=== PATIENT | female | born 1980 | race Caucasian/White ===

== ENCOUNTER 2022-07-28 08:41 | Emergency (ER) | payer OTHER ==
--- OUTSIDE RECORDS SUMMARY | 2022-07-28 08:45 | XMS REPORT | Continuity of Care Document ---
:1980 Author Organization [facility] t Address [address] [place] [address] Care Team Providers Name Role Phone Laz Pratt MD Primary Care Physician OVI TORRES Attending Clinician Unavailable HANK TORRES Attending Clinician Unavailable Michaelle Mccarthy APRN Attending Clinician Allie Steel RN Attending Clinician Unavailable HANK TORRES Attending Clinician Unavailable Aubrey OLGUIN, Provider Not In Attending Clinician Unavailable Lorene Campos MA Attending Clinician Unavailable Chen Rosenbaum RD Attending Clinician Unavailable HANK TORRES M.D. Attending Clinician Unavailable HANK TORRES Admitting Clinician Unavailable Hank Torres MD Admitting Clinician Payers Payer Name Policy Type Policy Number Effective Date Expiration Date [place]idi [place] [employer] CHOICE POS [id number] 2018 00:00:00 II Problems Condition Condition Condition Status Onset Resolution Last Treating Co mments Source Name Details Category Date Date Treatment Clinician Date Encounter Encounter Disease Active 2021-08 [facility] for for 2-07 Health screening screening 00:00: for for 00 osteoporos osteoporos is is Morbid Morbid Disease Active UT obesity obesity 804 Health due to due to 00:00: excess excess 00 calories calories Screening Screening Disease Active UT for viral for viral 4-01 Heal th disease disease 00:00: 00 Malabsorpt Malabsorpt Disease Active U T ion due to ion due to 3-31 He alth intoleranc intoleranc 00:00: e, not e, not 00 elsewhere elsewhere classified classified Malnutriti Malnutriti Disease Active U T on on 11-15 Health 00:00: 00 Vitamin D Vitamin D Disease Active UT deficiency deficiency 11-15 He alth 00:00: 00 Screening Screening Problem Active UT for viral for viral Phys ici disease disease ans Malabsorpt Malabsorpt Problem Active U T ion due to ion due to Ph ysici intoleranc intoleranc an s e, not e, not elsewhere elsewhere classified classified Malnutriti Malnutriti Problem Active U T on on Physici ans Vitamin D Vitamin D Problem Active UT deficiency deficiency Ph ysici ans Allergies, Adverse Reactions, Alerts This patient has no known allergies or adverse reactions. Social History Social Habit Start Date Stop Date Quantity Comments Source History [facility] Alcohol Frequency History [facility] Alcohol Std Drinks History [facility] Alcohol Binge Exposure to 2022-07-13 2022-07-[address] [facility] SARS-CoV-2 (event) 00:00:00 06:46:00 Tobacco use and 2021-03-21 2021-03-[address] [facility] exposure 00:00:00 00:00:00 non-user Alcohol intake 2021-03-21 2021-03-[address] [facility] 00:00:00 00:00:00 alcohol (finding) Alcohol Comment 2021-03-21 2021-03-21 Occasionally [place] [facility] 00:00:00 00:00:00 Sex Assigned At [address] [facility] 00:00:00 00:00:00 Smoking Status Start Date Stop Date Source Tobacco smoking consumption unknown [facility] Never smoked tobacco [facility] Medications Ordered Filled Start Stop Current Ordering Indication Dosage Frequency Signature Comments Components Source Medication Medication Date Date Medication? Clinician (SIG) Name Name Multiple 2021-08 Yes Take by IN Vitamin 2-07 mouth. [facility] (MULTIVITAM 08:19: INS PO) 49 CALCIUM PO 2021-08 Yes Take by IN 2-07 mouth. [facility] 08:19: 49 Multiple Yes Take by IN Vitamin 4-12 mouth. [facility] (MULTIVITAM 09:05: INS PO) 41 CALCIUM PO 2022-0 Yes Take by UT 4-12 mouth. O[facility] 09:05: 41 No known 0 No No known UT medications 1-04 medication He alth 09:08: s 55 No known 2020-0 No No known UT medications 05-16 medication He alth 13:27: s 36 No known 2020-0 No No known UT medications 05-16 medication He alth 13:27: s 36 No known 2020-0 No No known UT medications 05-16 medication He alth 13:27: s 36 No known 2020-0 No No known UT medications 05-16 medication He alth 13:27: s 36 celecoxib 2020- No [id number] 100mg Q.5D Take 1 UT (CeleBREX) 05-10 capsule Healt h 100 MG 00:00: 04:59 (100 mg capsule 00 :00 total) by mouth 2 (two) times a day for 3 days. celecoxib 2020- No [id number] 100mg Q.5D Take 1 UT (CeleBREX) 05-10 capsule Healt h 100 MG 00:00: 04:59 (100 mg capsule 00 :00 total) by mouth 2 (two) times a day for 3 days. pantoprazol Yes 40mg QD Take 40 mg UT e 05-09 by mouth 1 Health (ProtoNix) 00:00: (one) time 40 MG EC 00 each day. tablet pantoprazol Yes 40mg QD Take 40 mg UT e 9 by mouth 1 Health (ProtoNix) 00:00: (one) time 40 MG EC 00 each day. tablet pantoprazol 2020- No 40mg QD Take 40 mg UT e 05-09 11-03 by mouth 1 Health (ProtoNix) 00:00: 00:00 (one) time 40 MG EC 00 :00 each day. tablet amoxicillin Yes TAKE 1 UT -clavulanat 9-13 TABLET BY Hea lth e 00:00: MOUTH (Augmentin) 00 EVERY 12 875-125 MG HOURS FOR tablet 10 DAYS guaiFENesin Yes TAKE 10 ML UT -codeine 9-13 BY MOUTH Health (Robitussin 00:00: EVERY 6 -AC) 100-10 00 HOURS MG/5ML syrup amoxicillin 2021-0 Yes TAKE 1 UT -clavulanat 9-13 TABLET BY Hea lth e 00:00: MOUTH (Augmentin) 00 EVERY 12 875-125 MG HOURS FOR tablet 10 DAYS guaiFENesin Yes TAKE 10 ML UT -codeine 9-13 BY MOUTH Health (Robitussin 00:00: EVERY 6 -AC) 100-10 00 HOURS MG/5ML syrup amoxicillin 2020- No TAKE 1 UT -clavulanat 9-13 11-03 TABLET BY He alth e 00:00: 00:00 MOUTH (Augmentin) 00 :00 EVERY 12 875-125 MG HOURS FOR tablet 10 DAYS guaiFENesin 2020- No TAKE 10 ML UT -codeine 9-13 11-03 BY MOUTH Health (Robitussin 00:00: 00:00 EVERY 6 -AC) 100-10 00 :00 HOURS MG/5ML syrup No known 0 No No known UT medications 8-04 medication He alth 10:03: s 39 No known No No known UT medications 8-04 medication He alth 10:03: s 39 Vitamin D Vitamin D Yes MICHAELLE Take 1 UT (Ergocalcif (Ergocalcif 4-09 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 oziel) 1.25 oziel) 1.25 00:00: two times ans MG (21459 MG (69575 00 per week UT) Oral UT) Oral Capsule Capsule No known No UT medications Health No known No UT medications Health Vital Signs Vital Name Observation Time Observation Value Comments Source Systolic blood 2022-07-24 14:18:00 118 mm[Hg] [facility] pressure Diastolic blood 2022-07-24 14:18:00 74 mm[Hg] [facility] pressure Heart rate 2022-07-24 14:18:00 69 /min [facility] Body height 2022-07-24 14:18:00 162.6 cm [facility] Body weight 2022-07-24 14:18:00 87.181 kg [facility] BMI 2022-07-24 14:18:00 32.99 [facility] 2021-11-27 14:02:00 97 mm[Hg] [facility] pressure Diastolic blood 2021-11-27 14:02:00 64 mm[Hg] [facility] pressure Heart rate 2021-11-27 14:02:00 68 /min [facility] Body temperature 2021-11-27 14:02:00 36.67 Shnaa [facility] Body height 2021-11-27 14:02:00 162.6 cm [facility] Body weight 2021-11-27 14:02:00 97.16 kg [facility] BMI 2021-11-27 14:02:00 36.77 kg/m2 [facility] Systolic blood 2021-08-21 15:08:00 120 mm[Hg] [facility] pressure Diastolic blood 2021-08-21 15:08:00 80 mm[Hg] [facility] pressure Heart rate 2021-08-21 15:08:00 88 /min [facility] Body temperature 2021-08-21 15:08:00 36.94 Shana [facility] Body height 2021-08-21 15:08:00 162.6 cm [facility] Body weight 2021-08-21 15:08:00 101.696 kg [facility] BMI 2021-08-21 15:08:00 38.48 kg/m2 [facility] Systolic blood 2021-06-20 15:37:00 127 mm[Hg] [facility] pressure Diastolic blood 2021-06-20 15:37:00 78 mm[Hg] [facility] pressure Heart rate 2021-06-20 15:37:00 99 /min [facility] Body height 2021-06-20 15:37:00 162.6 cm [facility] Body weight 2021-06-20 15:37:00 109.861 kg [facility] BMI 2021-06-20 15:37:00 41.57 kg/m2 [facility] Systolic blood 2021-05-16 18:02:00 117 mm[Hg] [facility] pressure Diastolic blood 2021-05-16 18:02:00 75 mm[Hg] [facility] pressure Heart rate 2021-05-16 18:02:00 86 /min [facility] Body height 2021-05-16 18:02:00 162.6 cm [facility] Body weight 2021-05-16 18:02:00 114.579 kg [facility] BMI 2021-05-16 18:02:00 43.36 kg/m2 [facility] Systolic blood 2021-03-21 14:59:00 125 mm[Hg] [facility] pressure Diastolic blood 2021-03-21 14:59:00 83 mm[Hg] [facility] pressure Heart rate 2021-03-21 14:59:00 100 /min [facility] Body temperature 2021-03-21 14:59:00 35.83 Shana [facility] Body height 2021-03-21 14:59:00 162.6 cm [facility] Body weight 2021-03-21 14:59:00 118.842 kg [facility] BMI 2021-03-21 14:59:00 44.97 kg/m2 [facility] Body height 2021-02-09 13:23:00 162.6 cm [facility] Body weight 2021-02-09 13:23:00 118.661 kg [facility] BMI 2021-02-09 13:23:00 44.90 kg/m2 [facility] Body height 2021-02-02 13:36:00 162.6 cm [facility] Body weight 2021-02-02 13:36:00 119.477 kg [facility] BMI 2021-02-02 13:36:00 45.21 kg/m2 [facility] Body height 2021-01-26 13:25:00 162.6 cm [facility] Body weight 2021-01-26 13:25:00 120.566 kg [facility] BMI 2021-01-26 13:25:00 45.62 kg/m2 [facility] Body height 2021-01-19 13:21:00 162.6 cm [facility] Body weight 2021-01-19 13:21:00 120.748 kg [facility] BMI 2021-01-19 13:21:00 45.69 kg/m2 [facility] Body height 2021-01-12 13:18:00 162.6 cm [facility] Body weight 2021-01-12 13:18:00 120.657 kg [facility] BMI 2021-01-12 13:18:00 45.66 kg/m2 [facility] Body height 2021-01-05 13:14:00 162.6 cm [facility] Body weight 2021-01-05 13:14:00 120.838 kg [facility] BMI 2021-01-05 13:14:00 45.73 kg/m2 [facility] Body height 2020-12-29 13:30:00 162.6 cm [facility] Body weight 2020-12-29 13:30:00 121.428 kg [facility] BMI 2020-12-29 13:30:00 45.95 kg/m2 [facility] Body mass index 2020-11-15 13:10:00 47.51 kg/m2 [facility] (BMI) [Ratio] Body temperature 2020-11-15 13:10:00 96.4 [degF] Method: [facility] Temporal Heart Rate 2020-11-15 13:10:00 112 /min [facility] Systolic blood 2020-11-15 13:10:00 129 mm[Hg] Location: LUE; [facility] pressure Position: Sitting Diastolic blood 2020-11-15 13:10:00 73 mm[Hg] Location: LUE; [facility] pressure Position: Sitting Body height 2020-11-15 13:10:00 64 [in_us] [facility] Weight 2020-11-15 13:10:00 276.8 [lb_av] [facility] Procedures Procedure Date / Time Performed Performing Clinician [facility] e SURGICAL PATHOLOGY 2021-05-08 19:53:00 [facility] SURGICAL PATHOLOGY 2021-05-08 19:53:00 [facility] . [facility] - 2020-11-16 00:00:00 [place] Physician s COVID-19/SARS-Cov-2 [QL] VITAMIN B12 2020-11-15 00:00:00 [facility] ns [QL] VITAMIN E (TOCOPHEROL) 2020-11-15 00:00:00 [facility] [Q] COMPREHENSIVE METABOLIC 2020-11-15 00:00:00 [facility] PANEL W/eGFR (REFL) [Q] QUESTASSURED 25-OH VIT 2020-11-15 00:00:00 [facility] D, (D2,D3), LC/MS/MS [QL] CBC (INCLUDES DIFF/PLT) 2020-11-15 00:00:00 [facility] [QL] FOLATE, SERUM 2020-11-15 00:00:00 [facility] [QL] HEMOGLOBIN A1c 2020-11-15 00:00:00 [facility] [QL] IRON AND TOTAL IRON 2020-11-15 00:00:00 [facility] BINDING CAPACITY [QL] LIPID PANEL 2020-11-15 00:00:00 [facility] [QL] PTH, INTACT (WITHOUT 2020-11-15 00:00:00 [facility] CALCIUM) [QL] TSH, 3RD GENERATION 2020-11-15 00:00:00 [facility] W/REFLEX TO FT4 [QL] VITAMIN A (RETINOL) 2020-11-15 00:00:00 [facility] [QL] VITAMIN B1, WHOLE BLOOD 2020-11-15 00:00:00 [facility] Plan of Care Planned Activity Planned Date Details Comments Source Future Scheduled Test 2020-11-27 00:00[facility] COVID-19/SARS-Cov-2 [code = . MARYath - COVID-19/SARS-Cov-2] Encounters Start End Encounter Admission Attending Care Care Encounter Source Date/Time Date/Time Type Type Clinicians Facility Department ID 2022-07-24 Outpatient [facility] [id number] [place] 08:07:34 [id number] [facility] 2022-07-17 Outpatient [facility] [id number] [place] 09:28:40 [id number] [facility] 2021-08-21 Out[facility] [id number] [place] 09:34:22 OVI [facility] 2023-04-30 2023-04-30 [facility] [id number] UT 08:45:00 08:45:00 [facility] 2022-07-24 2022-07-24 [facility] [id number] [place] 08:45:00 08:45:00 [facility] 2022-07-24 2022-07-24 Office MARY Torres [id number] [place] 08:30:00 08:36:06 Visit Hank ROBERT [id number] [facility] [id number] [facility] [id number] 2021-11-27 2021-11-27 Office [place] [facility] 1.2.840.114 [id number] [place] 09:15:00 09:31:22 Visit Michaelle ROBERT [id number] H ealth MEDICAL 9.2.7.2.686 [facility] [id number] 2021-08-21 2021-08-21 Office [place] [facility] 1.2.840.114 [id number] UT 09:30:00 09:35:59 Visit Michaelle ROBERT [id number] H ealth MEDICAL 9.2.7.2.686 [facility] [id number] 2021-06-20 2021-06-20 Office Brian MARY 1.2.840.114 [id number] UT 10:04:57 11:48:28 Visit Hank ROBERT [id number] H ealth MEDICAL 9.2.7.2.686 [facility] [id number] 2021-05-16 2021-05-16 Office MARY Torres 1.2.840.114 [id number] UT 12:42:37 13:30:40 Visit Hank ROBERT [id number] H ealth MEDICAL 9.2.7.2.686 [facility] [id number] 1 2021-05-10 2021-05-10 Telephone Allie Steel 1.2.840.114 [id number] [place] 00:00:00 00:00:00 Allie Steel [id number] [facility] MEDICAL 9.2.7.2.686 [facility] [id number] 2021-05-08 2021-05-09 [facility] [id number] [facility] 09:23:00 18:00:00 HANK 2021-05-08 2021-05-08 EXT [facility] OP Brian EXT [facility] 1.2.840.114 1 [id number] UT 13:11:48 15:41:48 Hank LOCATION [id number] H ealth 9.2.7.2.686 [id number] 1 2021-05-08 2021-05-08 EXT M[facility] OP BRIAN, EXT MSRDP 1.2.840.114 1 [id number] UT 13:11:48 15:41:48 HANK LOCATION [id number] H ealth 9.2.7.2.686 [id number] 2021-05-08 2021-05-08 EXT MHH IP System, EXT MSRDP 1.2.840.114 1 [id number] UT 00:00:00 00:00:00 Provider LOCATION [id number] Health Not In 9.2.7.2.686 [id number] 2021-05-08 2021-05-08 EXT MHH IP System, EXT MSRDP 1.2.840.114 1 [id number] UT 00:00:00 00:00:00 Provider LOCATION [id number] Health Not In 9.2.7.2.686 [id number] 2021-03-21 2021-03-21 Consult MARY Torres 1.2.840.114 [id number] UT 09:16:17 11:05:53 Hank [facility]LLAI[facility].13.58 [facility] 9.2.7.2.686 [facility] [id number] 1 2021-03-12 2021-03-12 Telephone Lorene Campos [facility] 1. 2.840.114 [id number] [place] 00:00:00 00:00:00 Lorene Campos SE MED 350.1.13 .58 Health [place] 2 9.2.7.2.686 [id number] 2021-02-12 2021-02-12 Telephone MARY Torres [facility] 1.2.709.630 [id number] [place] 00:00:00 00:00:00 Hank SE MED [id number] He alth [place] 2 9.2.7.2.686 [id number] 2021-02-09 2021-02-09 Nutrition MARY Rosenbaum [facility] 1.2.840.114 11 [id number] [place] 08:09:41 08:42:00 Chen SE MED [id number] He alth [place] 2 9.2.7.2.686 [id number] 2021-02-02 2021-02-02 Nutrition [place], UTP [facility] 1.2.840.114 11 [id number] [place] 08:04:30 08:27:26 Chen SE MED [id number] He alth [place] 2 9.2.7.2.686 [id number] 2021-01-26 2021-01-26 Nutrition [place], UTP [facility] 1.2.840.114 11 [id number] [place] 08:08:07 08:23:58 Chen SE MED [id number] He alth [place] 2 9.2.7.2.686 [id number] 2021-01-19 2021-01-19 Nutrition [place], UTP [facility] 1.2.840.114 11 [id number] [place] 08:05:24 08:20:53 Chen SE MED [id number] He alth [place] 2 9.2.7.2.686 [id number] 2021-01-12 2021-01-12 Nutrition [place], UTP [facility] 1.2.840.114 11 [id number] [place] 08:07:47 08:15:18 Chen SE MED [id number] He alth [place] 2 9.2.7.2.686 [id number] 2021-01-05 2021-01-05 Nutrition [place], UTP [facility] 1.2.840.114 11 [id number] [place] 08:05:09 08:20:09 Chen SE MED [id number] He alth [place] 2 9.2.7.2.686 [id number] 2020-12-29 2020-12-29 Nutrition [place], UTP [facility] 1.2.840.114 11 [id number] [place] 08:16:54 09:27:03 Chen SE MED [id number] He alth [place] 2 9.2.7.2.686 [id number] 2020-12-14 2020-12-14 EXT [facility] OP Brian, EXT MSRDP 1.2.840.114 1 [id number] [place] 00:00:00 00:00:00 Hank LOCATION [id number] H ealth 9.2.7.2.686 [id number] 2020-12-14 2020-12-14 EXT [facility] OP Brian EXT MSRDP 1.2.840.114 1 [id number] [place] 00:00:00 00:00:00 Hank LOCATION 350.1.13.58 H ealth 9.2.7.2.686 [id number] 2020-11-15 2020-11-15 Appointmen MARY TORRES Minimally [id number] [place] 13:15:00 13:15:00 t; HANK TORRES M.D. Invasive Milan MCKINNEY M.D. [facility]) Results Test Description Test Time Test Comments Results Result Comments Source SURGICAL PATHOLOGY 2021-05-08 19:53:00 Test Item Value Reference Range Interpretation Comme nts Diagnosis (test code = 2846320) Stomach, partial gastrectomy: - Gastric mucosa with minimal chronic inflammation and focal hemorrhage. - Vascular congestion.Partial gastrectomyGastric mucosaChronic inflammation, NOSFocal inflammationSTOMACHHemorrhage, NOSVascularCongestion, NOS Specimen Source (test code = Partial stomach 9998778) Clinical Information (test code Clinical History: ?MORBID OBESITYOp erative = 3129025) Procedure: ?ROBOTIC ASSISTED LAPAROSCOPIC SLEEVE GASTRECTOMY Gross Description (test code = Received in formalin, labeled with the patient's [id number]) name, MRN, and "partial stomach", is an unoriented partial gastrectomy specimen (20.0 cm in length x 2.5 to 4.0 cm in diameter) with a stapled margin. ?The serosa is watts-pink, focally congested, and slightly roughened. ?The mucosa is watts-red and partly erythematous mucosa with focal possible superficial mucosal defects (ranging from 0.1 to 0.5 cm in greatest dimension) rimmed by hemorrhagic mucosa and with some extension of hemorrhage into the submucosa. ?The uninvolved mucosa is watts-pink with the usual rugal folds. ?The wall is approximately 0.5 cm in thickness. ?Representatively submitted as follows: 1A: Resection margin, en face, [id number]: Possible mucosal ichtjjy9J: Uninvolved mucosa HR 05/09/2021 10:02 Microscopic Description (test Microscopic examination has been perf ormed and code = 7906604) the findings are incorporated in the diagnosis above. Non Clinical Documentation 65625-TO (test code = 9453887) Teaching Physician Statement "I have personally reviewed the reside nt's gross (test code = 0027175) description and all specimen preparations and have personally issued this report." [id number] 19:53:00 Test Item Value Reference Range Interpretation Comments Diagnosis (test code Stomach, partial = 7705075) gastrectomy: - Gastric mucosa with minimal chronic inflammation and focal hemorrhage. - Vascular congestion.Partial gastrectomyGastric mucosaChronic inflammation, NOSFocal inflammationSTOMACHHemorr sb, NOSVascularCongestion, NOS Specimen Source Partial stomach (test code = 3001247) Clinical Information Clinical History: ?MORBID (test code = OBESITYOperative 7940817) Procedure: ?ROBOTIC ASSISTED LAPAROSCOPIC SLEEVE GASTRECTOMY Gross Description Received in formalin, (test code = labeled with the 0813361) patient's name, MRN, and "partial stomach", is an unoriented partial gastrectomy specimen (20.0 cm in length x 2.5 to 4.0 cm in diameter) with a stapled margin. ?The serosa is watts-pink, focally congested, and slightly roughened. ?The mucosa is watts-red and partly erythematous mucosa with focal possible superficial mucosal defects (ranging from 0.1 to 0.5 cm in greatest dimension) rimmed by hemorrhagic mucosa and with some extension of hemorrhage into the submucosa. ?The uninvolved mucosa is watts-pink with the usual rugal folds. ?The wall is approximately 0.5 cm in thickness. ?Representatively submitted as follows: 1A: Resection margin, en face, [id number]: Possible mucosal jyfxrcd1W: Uninvolved mucosa HR 05/09/2021 10:02 Microscopic Microscopic examination Description (test has been performed and code = 3529861) the findings are incorporated in the diagnosis above. Non Clinical 60470-TP Documentation (test code = 7549526) Teaching Physician "I have personally Statement (test code reviewed the resident's = 5505350) gross description and all specimen preparations and have personally issued this report." [facility][] LIPID [id number] 14:25:00 Test Item Value Reference Range Interpretation Comments CHOLESTEROL, TOTAL; 160 mg/dl <200 N Normal (test code = 3-3) HDL CHOLESTEROL; 46 mg/dl See_Comment [Automated message] Below Low Threshold The syst em which (test code = 2084-) generat ed this result transmit pippa reference range : > OR = 50. The reference range was not used to interpret this result as normal/abnormal . TRIGLYCERIDES; 95 mg/dl <150 N Normal (test code = 2571-8) LDL-CHOLESTEROL; 95 {MG/DL ALEX} N Reference range: Normal (test code = <100 Robert irable range 35332-0) <100 mg/dL for primary prevent ion; <70 mg/dL for patients with C HD or diabetic patien ts with > or = 2 C HD risk factors. L DL-C is now calculat ed using the Leeann calculation, wh ich is a validated novel method providin g better accuracy than the Friedewald equation in the estimation of L DL-C. Felice SS et al . ANGEL. 2013;310( 19): 2121-6582 (http://educati on.Souq.com. com/f aq/SNV655) CHOL/HDLC RATIO 3.5 {CALC} <5.0 N (test code = CHOL/HDLC RATIO) NON HDL CHOLESTEROL 114 {MG/DL <130 N For js ents with (test code = NON HDL ALEX} diabete s plus 1 CHOLESTEROL) major ASCVD ris k factor, treatin g to a non-HDL-C goa l of <100 mg/dL (LDL -C of <70 mg/dL) is considered a therapeutic opt ion. [facility][Q] COMPREHENSIVE METABOLIC PANEL W/eGFR (REFL)2020-11-15 14:25:00 Test Item Value Reference Range Interpretation Comments GLUCOSE; Normal 80 mg/dl 65-99 N Fasting refe rence (test code = interval 1547-9) UREA NITROGEN (BUN) 9 mg/dl 7-25 N (test code = UREA NITROGEN (BUN)) CREATININE (test 0.83 mg/dl 0.50-1.10 N code = CREATININE) eGFR NON-AFR. 89 {ML/MIN/1.7} See_Comment N [Automated SALVADOREAN (test code message] The = eGFR NON-AFR. system which SALVADOREAN) generated this result transmit pippa reference range : > OR = 60. The reference range was not used to interpret this result as normal/abnormal . eGFR 104 {ML/MIN/1.7} See_Comment N [Automated SALVADOREAN (test code message] The = eGFR system which SALVADOREAN) generated this result transmit pippa reference range : > OR = 60. The reference range was not used to interpret this result as normal/abnormal . BUN/CREATININE NOT APPLICABLE 6-22 RATIO (test code = BUN/CREATININE RATIO) SODIUM (test code = 139 mmol/L 135-146 N SODIUM) POTASSIUM (test 4.2 mmol/L 3.5-5.3 N code = POTASSIUM) CHLORIDE (test code 103 mmol/L 98-110 N = CHLORIDE) CARBON DIOXIDE 28 mmol/L 20-32 N (test code = CARBON DIOXIDE) CALCIUM (test code 9.3 mg/dl 8.6-10.2 N = CALCIUM) PROTEIN, TOTAL 7.2 g/dl 6.1-8.1 N (test code = PROTEIN, TOTAL) ALBUMIN (test code 4.2 g/dl 3.6-5.1 N = ALBUMIN) GLOBULIN (test code 3.0 {G/DL CALC} 1.9-3.7 N = GLOBULIN) ALBUMIN/GLOBULIN 1.4 {CALC} 1.0-2.5 N RATIO (test code = ALBUMIN/GLOBULIN RATIO) BILIRUBIN, TOTAL; 0.4 mg/dl 0.2-1.2 N Normal (test code = 60123-0) ALKALINE 120 u/l 31-125 N PHOSPHATASE (test code = ALKALINE PHOSPHATASE) AST; Normal (test 20 u/l 10-30 N code = 1916-6) ALT; Normal (test 17 u/l 6-29 N code = 1742-6) [facility][QL] IRON AND TOTAL IRON BINDING [id number] 14:25:00 Test Item Value Reference Range Interpretation Comments IRON, TOTAL (test code = 52 {mcg/dl} 40-190 N IRON, TOTAL) IRON BINDING CAPACITY (test 362 {mcg/dL ca} 250-450 N code = IRON BINDING CAPACITY) % SATURATION (test code = % 14 {% CALC} 16-45 SATURATION) [facility][QL] CBC (INCLUDES DIFF/PLT)2020-11-15 14:25:00 Test Item Value Reference Range Interpretation Comments WHITE BLOOD CELL COUNT 8.7 {Thousand/u} 3.8-10.8 N (test code = WHITE BLOOD CELL COUNT) RED BLOOD CELL COUNT (test 4.72 {Million/uL} 3.80-5.10 N code = RED BLOOD CELL COUNT) HEMOGLOBIN; Normal (test 12.8 g/dl 11.7-15.5 N code = 70560-3) HEMATOCRIT; Normal (test 39.3 % 35.0-45.0 N code = 4544-3) MCV; Normal (test code = 83.3 fL 80.0-100.0 N 787-2) MCHC; Normal (test code = 32.6 g/dl 32.0-36.0 N 97252-6) RDW; Normal (test code = 13.7 % 11.0-15.0 N 788-0) PLATELET COUNT; Normal 323 {Thousand/u} 140-400 N (test code = 777-3) MPV; Normal (test code = 10.4 fL 7.5-12.5 N 06306-4) ABSOLUTE NEUTROPHILS (test 5881 {cells/uL} 9610-0308 N code = ABSOLUTE NEUTROPHILS) ABSOLUTE LYMPHOCYTES (test 2053 {cells/uL} 850-3900 N code = ABSOLUTE LYMPHOCYTES) ABSOLUTE MONOCYTES (test 505 {cells/uL} 200-950 N code = ABSOLUTE MONOCYTES) ABSOLUTE EOSINOPHILS (test 218 {cells/uL} 15-500 N code = ABSOLUTE EOSINOPHILS) ABSOLUTE BASOPHILS (test 44 {cells/uL} 0-200 N code = ABSOLUTE BASOPHILS) NEUTROPHILS (test code = 67.6 % N NEUTROPHILS) LYMPHOCYTES (test code = 23.6 % N LYMPHOCYTES) MONOCYTES; Normal (test 5.8 % N code = 51464-3) EOSINOPHILS; Normal (test 2.5 % N code = 87366-2) BASOPHILS; Normal (test 0.5 % N code = 03099-2) [facility][QL] PTH, INTACT (WITHOUT CALCIUM)2020-11-15 14:25:00 Test Item Value Reference Range Interpretation Comments PARATHYROID 32 pg/ml 14-64 N Interpretive Gu vitor Intact PTH HORMONE, INTACT Calcium----- (test code = ---- ---Normal PARATHYROID Parathyroid Nor mal HORMONE, INTACT) NormalHypop arathyroidism Low or Low Normal LowHyperparathy roidism Primary Normal or High High Secondary High Normal or Low Tertiary High HighNon-Parathy roid Hypercalcemia L ow or Low Normal High [facility][QL] VITAMIN E (TOCOPHEROL)2020-11-15 14:25:00 Test Item Value Reference Range Interpretation Comments ALPHA-TOCOPHEROL 11.3 mg/L Reference R shirin 5.7-19.9 (test code = mg/L Levels of ALPHA-TOCOPHEROL) alpha-toco pherol <5 mg/L are consistent with Vitamin E deficiency in adults.Vitamin supplementation within 24 hours prior to blood draw may affect the accuracy of results. This t est was developed and i ts analytical perf ormance characteristics have been determined by [employer]. It has not been cleared or approved by theFDA. This as say has been validated pursu ant to the CLIA regulation s and is used for clinic al purposes. REBL-YEJOR-RVWISZ 1.1 mg/L <4.4 This test was developed and OZIEL (test code = its analyt ical performance [id number]-YGBLI-RENRWT characteri stics have been OZIEL) determined by [employer]. It has not been cleared or approved by theFDA. This as say has been validated pursu ant to the CLIA regulation s and is used for clinic al purposes. Reference Range 5.7-19.9 mg/L Levels of alpha-tocopherol <5 mg/L are consistent with Vitamin E deficiency in adults.Vitamin supplementation within 24 hours prior to blood draw may affect the accuracy of results. This test was developed and its analytical performance characteristics have been determined by [employer]. It has not been cleared or approved by theFDA. This assay has been validated pursuant to the CLIA regulations and is used for clinical purposes.[facility][QL] FOLATE, [id number] 14:25:00 Test Item Value Reference Range Interpretation Comments FOLATE, SERUM (test 5.5 ng/ml N Referenc e Range Low: code = FOLATE, <3.4 Borderli ne: SERUM) 3.4-5.4 Normal: >5.4 [facility][QL] VITAMIN [id number] 14:25:00 Test Item Value Reference Range Interpretation Comments VITAMIN B12 (test code = VITAMIN 696 pg/ml 200-1100 N B12) [facility][QL] TSH, 3RD GENERATION W/REFLEX TO [id number] 14:25:00 Test Item Value Reference Range Interpretation Comments TSH, 3RD GENERATION 0.97 {MIU/L} N Referenc e Range > or W/REFLEX TO FT4 (test = 22 Y ears 0.40-4.50 code = TSH, 3RD Ra nges GENERATION W/REFLEX First tr imester TO FT4) 0.26-2.66 Secon d trimester 0.55- 2.73 Third trimester 0.43-2.91 [facility][QL] VITAMIN B1, WHOLE [id number] 14:25:00 Test Item Value Reference Range Interpretation Comments VITAMIN B1, WHOLE 98 nmol/L 78-185 Vitamin clark pplementation BLOOD (test code = within 24 hours prior VITAMIN B1, WHOLE toblood dr reddy may affect BLOOD) the accuracy of results. This test was d markd and its analyti alex performance characteristics have been determined by [employer]. It has not been cleared or approved by theFDA. This assay has been validated pursuant to the CLIA regula tions and is used for cli nical purposes. REPORT COMMENT:AN UPDATE OR CORRECTION HAS BEEN MADE TO [facility][QL] HEMOGLOBIN [id number] 14:25:00 Test Item Value Reference Range Interpretation Comments HEMOGLOBIN A1c; 5.0 {% of <5.7 N For the purp ose of Normal (test code total} screening for the = 4548-4) presence ofdiab etes: <5.7% Consisten t with the absence of diabetes5.7-6.4 % Consistent with increased risk for diabetes (predi abetes)> or =6.5% Consis tent with diabetes T his assay result is consistent with a decreased risko f diabetes. Curre ntly, no consensus exist s regarding use ofhemoglobin A1 c for diagnosis of di abetes in children. Ac cording to [place] [employer] [employer] (ADA)guidelines , hemoglobin A1c <7.0% represents optimalcontrol in non- di abetic patients. Differentmetric s may apply to specif ic patient populat ions. Standards of Md dical Care in Diabete s(ADA). [facility][QL] VITAMIN A (RETINOL)2020-11-15 14:25:00 Test Item Value Reference Range Interpretation Comments VITAMIN A (test 41 {mcg/dl} 38-98 Clin Chem Vol. 34.No.8. code = VITAMIN A) [id number] 8. 1998Vitamin supplementation within 24 hours prior to blood draw may affect the accuracy of results. Thi s test was developed and i ts analytical perf ormance characteristics have been determined by [employer]. It has not been cleared or approved by theA. This assay has been validated pursuant to the CLIA reg ulations and is used for clinical purposes. REPORT COMMENT:AN UPDATE OR CORRECTION HAS BEEN MADE TO [facility][Q] QUESTASSURED 25-OH VIT D, (D2,D3), LC/MS/[id number] 14:25:00 Test Item Value Reference Range Interpretation Comments VITAMIN D, <4.0 ng/ml 30-100 (Note)Reference range: Not 25-OH, D2 established Thi s test was (test code = developed and i ts analytical VITAMIN D, performancechar acteristics have 25-OH, D2) been determined by [employer]. It has not been cleared or approved by the [place] Food and Drug Administra tion. Thisassay has been valida pippa pursuant to the CLIA regula tion and is usedfor Clinica l purposes.MDed [id number] [facility] [address] [place] [address] [id number] 00MicKy March ote 1 Note 1 For additional info rmation, please refer to [email or web address] [email or web address]/[email or web address] (This link is being provided for informational/e ducational purposes only.) VITAMIN D, 22 ng/ml Reference range : Not 25-OH, D3 established (test code = VITAMIN D, 25-OH, D3) Reference range: Not establishedREPORT COMMENT:AN UPDATE OR CORRECTION HAS BEEN MADE TO [facility]
[2022-07-28 09:04] LABS: Urine Blood Trace-intact (Negative); Urine Glucose Negative (Negative); Urine Protein Negative (Negative); Urine Specific Gravity <=1.005 (1.005-1.030); Urine pH 5.5 (5.0-7.0)
[2022-07-28] MEDS ORDERED: KETOROLAC 30 MG/ML INJ ONE (09:18)
[2022-07-28] MEDS ORDERED: NA CHLORIDE 0.9% 1,000 ML ONE (09:19)
[2022-07-28 09:42] LABS: Absolute Lymphocytes (CBC) 1.2 K/uL (0.7-4.9); Hematocrit 34.9 % (36.0-45.0); Lymphocytes % 22.2 % (15.3-44.8); MPV 8.6 fL (7.6-11.3); RBC Red Blood Cell Count 4.05 M/uL (3.86-4.86)
[2022-07-28] MEDS ORDERED: MORPHINE 4 MG/ML SYR ONE (10:16)
[2022-07-28] MEDS ORDERED: ONDANSETRON 4 MG/2 ML VIAL ONE (10:16)
--- NOTE | 2022-07-28 10:44 | RAD REPORT ---
EXAM DESCRIPTION: [facility]Stone Protocol - 07/28/2022 10:18 am CLINICAL HISTORY: Left Flank pain COMPARISON: None TECHNIQUE: CT of the abdomen and pelvis was performed without contrast. All CT scans are performed using dose optimization technique as appropriate and may include automated exposure control or mA/KV adjustment according to patient size. FINDINGS: Lower chest: Small hiatal hernia. Liver: No acute abnormality or suspicious lesions. Biliary: Cholecystectomy Stomach: Partial gastrectomy. Duodenum: No significant focal abnormality. Pancreas: No significant abnormality. Spleen: No significant abnormality. Adrenal: No suspicious lesions. Kidney/ureter: No hydronephrosis. No renal calculi. Multiple calcifications along the course of both ureters are favored to represent phleboliths. Retroperitoneum: No retroperitoneal adenopathy. Vascular: No aneurysm. Bowel: Moderate stool in the colon.. Normal appendix. Peritoneum: No ascites or free air. Small fat containing ventral hernia. Bladder: Grossly unremarkable. Reproductive: No adnexal masses. Bones: No acute fracture. Other: Reactive size left inguinal lymph nodes with mild stranding in the subcutaneous tissues. IMPRESSION: No acute intra-abdominal or pelvic finding. Calcifications along the course of both uret ers favored to represent phleboliths. No definite ureteral calculus. No renal calculi identified. Reactive size left inguinal lymph nodes with mild subcutaneous edema that is of uncertain etiology, p ossibly infection or inflammation. The finding may be of little clinical significance in the absence of any clinical symptoms.
--- NOTE | 2022-07-28 11:04 | ER ---
Nurse's Notes [facility] Name: Alycia Rodriguez Age: 42 yrs Sex: Female : 1980 Arrival Date: 07/28/2022 Time: 08:42 Bed 14 Private MD: Diagnosis: Herpes Zoster;Low back pain Presentation: 07/28 08:52 Chief complaint: Patient states: she started having left flank pain Friday07/21/2022 ap3 that hasn't improved. patient states the pain feels like a burning feeling that radiates around to her left lower abdominal quadrant. patient denies any NVD. Coronavirus screen: At this time, the client does not indicate any symptoms associated with coronavirus-19. Ebola Screen: No symptoms or risks identified at this time. Initial Sepsis Screen: Does the patient meet any 2 criteria? No. Patient's initial sepsis screen is negative. Does the patient have a suspected source of infection? No. Patient's initial sepsis screen is negative. Risk Assessment: Do you want to hurt yourself or someone else? Patient reports no desire to harm self or others. Onset of symptoms was July 21, 2022. 08:52 Method Of Arrival: Ambulatory ap3 08:52 Acuity: JIE 3 ap3 Triage Assessment: 08:54 General: Appears uncomfortable, Behavior is calm, cooperative, appropriate for age. ap3 Pain: Complains of pain in left low back Pain radiates to left lower quadrant. Neuro: Level of Consciousness is awake, alert, obeys commands, Oriented to person, place, time, situation. Cardiovascular: Patient's skin is warm and dry. Respiratory: Airway is patent Respiratory effort is even, unlabored, Respiratory pattern is regular, symmetrical. 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 - Social history:: Smoking status: Patient denies any tobacco usage or history of. Screenin:54 Abuse screen: Denies threats or abuse. Nutritional screening: No deficits noted. ap3 Tuberculosis screening: No symptoms or risk factors identified. Fall Risk None identified. Assessment: 09:15 General: Appears in no apparent distress. uncomfortable, ill, Behavior is calm, ko1 cooperative, appropriate for age. Pain: Complains of pain in abdomen and left lower quadrant and back and left low back. Neuro: No deficits noted. Cardiovascular: No deficits noted. Respiratory: No deficits noted. GI: Reports lower abdominal pain. : No deficits noted. EENT: No deficits noted. Derm: No deficits noted. Musculoskeletal: No deficits noted. Vital Signs: 08:52 BP 119 / 71; Pulse 71; Resp 17; Temp 98.4; Pulse Ox 99% ; Weight 86.64 kg; Height 5 ft. ap3 4 in. (162.56 cm); 09:49 BP 103 / 70; Pulse 75; Pulse Ox 100% ; ko1 08:52 Body Mass Index 32.78 (86.64 kg, 162.56 cm) ap3 ED Course: 08:42 Patient arrived in ED. am2 08:47 Karen Guillen, RN is Primary Nurse. ko1 08:49 Armin Padron DO is Attending Physician. ms3 08:53 Triage completed. ap3 08:55 Arm band placed on left wrist. ap3 08:55 Patient has correct armband on for positive identification. Placed in gown. Bed in low ap3 position. Call light in reach. Side rails up X 1. Pulse ox on. NIBP on. Door closed. Noise minimized. 09:15 No provider procedures requiring assistance completed. IV discontinued, intact, ko1 bleeding controlled, No redness/swelling at site. Pressure dressing applied. 09:32 CBC with Diff Sent. ko1 10:20 Stone Protocol In Process Unspecified. EDMS 11:02 Brendon Morin DO is Referral Physician. ms3 Administered Medications: 09:31 Drug: NS 0.9% 1000 ml Route: IV; Rate: 1 bolus; Site: right antecubital; ko1 09:31 Drug: Ketorolac 10 mg Route: IVP; Site: right antecubital; ko1 10:25 Drug: Zofran (Ondansetron) 4 mg Route: IVP; Site: right antecubital; ko1 11:00 Follow up: Response: No adverse reaction ko1 10:26 Drug: morphine 4 mg Route: IVP; Infused Over: 4 mins; Site: right antecubital; ko1 11:00 Follow up: Response: No adverse reaction; Pain is decreased ko1 Medication: 09:15 VIS not applicable for this client. ko1 Outcome: 09:15 Discharged to home ambulatory. ko1 09:15 Condition: improved 09:15 Discharge instructions given to patient, Instructed on discharge instructions, follow up and referral plans. medication usage, Demonstrated understanding of instructions, follow-up care, medications, Prescriptions given X 3. 11:03 Discharge ordered by . ms3 11:37 Patient left the ED. ko1 Signatures: Dispatcher [employer] EDMS Stefani Hsu am2 Stefani Maldonado, RN RN ap3 Armin Padron DO DO ms3 Karen Guillen, DMITRI RN ko1
--- NOTE | 2022-07-28 11:04 | EDPHYS ---
Physician Documentation [facility] Name: Alycia Rodriguez Age: 42 yrs Sex: Female : 1980 Arrival Date: 07/28/2022 Time: 08:42 Bed 14 Private MD: ED Physician Armin Padron HPI: 07/28 09:50 This 42 yrs old Female presents to ER via Ambulatory with complaints of Flank Pain - ms3 left. 09:50 The patient complains of pain in the left low back. The pain does not radiate. Onset: ms3 The symptoms/episode began/occurred 6 day(s) ago. Modifying factors: The symptoms are alleviated by nothing. the symptoms are aggravated by nothing. Associated signs and symptoms: The patient has no apparent associated signs or symptoms. Severity of pain: At its worst the pain was severe in the emergency department the pain is unchanged. 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 - Social history:: Smoking status: Patient denies any tobacco usage or history of. ROS: 09:50 Constitutional: Negative for fever, and chills. Neck: Negative for injury, pain, and ms3 swelling, Cardiovascular: Negative for chest pain, and palpitations. Respiratory: Negative for shortness of breath, cough, wheezing, and pleuritic chest pain. 09:50 Abdomen/GI: Negative for abdominal pain, nausea, vomiting, diarrhea, and constipation, Skin: Negative for injury, rash, and discoloration. 09:50 Abdomen/GI: 09:50 Back: Positive for flank pain. 09:50 All other systems are negative. Exam: 09:50 Constitutional: This is a well developed, well nourished patient who is awake, alert, ms3 and in no acute distress. Head/Face: Normocephalic, atraumatic. Neck: Trachea midline, no cervical lymphadenopathy. Supple, full range of motion without nuchal rigidity, or vertebral point tenderness. No Meningismus. Chest/axilla: Normal chest wall appearance and motion. Nontender with no deformity. Cardiovascular: Regular rate and rhythm with a normal S1 and S2. No gallops, murmurs, or rubs. Normal PMI, no JVD. No pulse deficits. Respiratory: Lungs have equal breath sounds bilaterally, clear to auscultation and percussion. No rales, rhonchi or wheezes noted. No increased work of breathing, no retractions or nasal flaring. Abdomen/GI: Soft, non-tender, with normal bowel sounds. No distension or tympany. No guarding or rebound. No evidence of tenderness throughout. 09:50 Back: No spinal tenderness. No costovertebral tenderness. Full range of motion. Skin: Warm, dry with normal turgor. Normal color with no rashes, no lesions, and no evidence of cellulitis. 09:50 Back: pain, that is moderate, ROM is normal, CVA tenderness, is absent, vertebral tenderness, is not appreciated. 11:11 Skin: rash can be described as vesicular, on the left low back. ms3 Vital Signs: 08:52 BP 119 / 71; Pulse 71; Resp 17; Temp 98.4; Pulse Ox 99% ; Weight 86.64 kg; Height 5 ft. ap3 4 in. (162.56 cm); 09:49 BP 103 / 70; Pulse 75; Pulse Ox 100% ; ko1 08:52 Body Mass Index 32.78 (86.64 kg, 162.56 cm) ap3 MDM: 09:09 Patient medically screened. ms3 09:50 Differential diagnosis: nephrolithiasis, pyelonephritis, UTI. ms3 11:12 Data reviewed: vital signs, nurses notes, lab test result(s), radiologic studies, and ms3 as a result, I will discharge patient. Counseling: I had a detailed discussion with the patient and/or guardian regarding: the historical points, exam findings, and any diagnostic results supporting the discharge/admit diagnosis, lab results, radiology results, the need for outpatient follow up, to return to the emergency department if symptoms worsen or persist or if there are any questions or concerns that arise at home. ED course: Discussed labs and imaging with patient. Patient to follow-up with Dr. Morin in 2 days. Patient understands agrees with plan. All questions were answered. Return precautions discussed include worsening symptoms, or any other concerns. On reevaluation patient symptoms improved, no apparent distress, nontoxic-appearing, ambulatory in emergency department, speaking full sentences. 07/28 09:04 Order name: Urine Dipstick-Ancillary; Complete Time: 09:09 EDMS 07/28 09:10 Order name: CBC with Diff; Complete Time: 10:06 ms3 07/28 09:13 Order name: Test, Serum; Complete Time: 10:06 eb 07/28 09:31 Order name: Stone Protocol; Complete Time: 10:45 EDMS 07/28 09:10 Order name: IV Saline Lock; Complete Time: :32 ms3 07/28 09:10 Order name: Labs collected and sent; Complete Time: : ms3 07/28 09:10 Order name: Urine Test (obtain specimen); Complete Time: : ms3 Administered Medications: :31 Drug: NS 0.9% 1000 ml Route: IV; Rate: 1 bolus; Site: right antecubital; ko1 09:31 Drug: Ketorolac 10 mg Route: IVP; Site: right antecubital; ko1 10:25 Drug: Zofran (Ondansetron) 4 mg Route: IVP; Site: right antecubital; ko1 11:00 Follow up: Response: No adverse reaction ko1 10:26 Drug: morphine 4 mg Route: IVP; Infused Over: 4 mins; Site: right antecubital; ko1 11:00 Follow up: Response: No adverse reaction; Pain is decreased ko1 Disposition Summary: 07/28/22 11:03 Discharge Ordered Location: Home ms3 Condition: Stable ms3 Diagnosis - Herpes Zoster ms3 - Low back pain ms3 Followup: ms3 - With: Brendon Morin, DO - When: 2 - 3 days - Reason: Recheck today's complaints Discharge Instructions: - Discharge Summary Sheet ms3 - Shingles ms3 Forms: - Medication Reconciliation Form ms3 - Thank You Letter ms3 - Antibiotic Education ms3 - Prescription Opioid Use ms3 Prescriptions: - Lidoderm 5 % Topical adhesive patch,medicated - apply 1 patch by TOPICAL route once daily; 20 patch; Refills: 0, Product ms3 Selection Permitted - valacyclovir 1 gram Oral tablet - take 1 tablet by ORAL route 3 times per day; 21 tablet; Refills: 0, Product ms3 Selection Permitted - Tylenol-Codeine #3 300 mg-30 mg Oral - take 1 tablet by ORAL route every 6 hours; 12 tablet; Refills: 0, Product ms3 Selection Permitted Signatures: Dispatcher [employer] EDMS Stefani Maldonado, RN RN ap3 Armin Padron DO DO ms3 Karen Guillen RN RN ko1 Corrections: (The following items were deleted from the chart) 09:31 09:11 Abdomen Pelvis Wo Con+CT.RAD.BRZ ordered. EDMS EDMS
[2022-07-28 11:41] VITALS: TEMP 98.4
[2022-07-28 11:42] VITALS: BP 103/70; O2SAT 100
== END 2022-07-28 11:37 | disposition home or self-care (01) ==
LOC: ER 08:41
DX: B02.9 Zoster without complications (principal)
CPT/HCPCS: 85025; 36415; 84703; 81003; 76377; 74176; 96375; 96374; 99284; J7030; J2405